=== PATIENT | male | born 1960 | race Caucasian/White ===

== ENCOUNTER 2021-01-20 11:54 | Emergency (ER) | payer OTHER ==
[~2021-01-20] VITALS: Ht 167.6 cm; Wt 120.0 kg
[2021-01-20 12:32] LABS: BASOPHILS % 0.7 % (0.0-2.0); EOSINOPHILS % 2.4 % (0.0-5.0); HEMATOCRIT. 37.4 % (42.0-52.0); HEMOGLOBIN. 12.6 g/dL (14.0-18.0); LYMPHOCYTES % 9.8 % (20.0-50.0); MEAN CORPUSCULAR HEMOGLOBIN 31.6 pg (28.0-32.0); MEAN CORPUSCULAR VOLUME 93.8 fL (80.0-94.0); MONOCYTES % 10.8 % (2.0-8.0); NEUTROPHILS % 76.3 % (40.0-76.0); PLATELET 234 x1000/uL (130-400); RED BLOOD CELL COUNT 3.99 mill/uL (4.7-6.1); RED CELL DISTRIBUTION WIDTH 12.5 % (11.6-14.6)
[2021-01-20 12:37] LABS: CHLORIDE 101 mEq/L (98-107)
[2021-01-20 16:31] VITALS: BP 160/80
== END 2021-01-20 17:49 | disposition home or self-care (01) ==
LOC: ER 11:54
DX: M25.561 Pain in right knee (principal); E11.65 Type 2 diabetes mellitus with hyperglycemia; I10 Essential (primary) hypertension
CPT/HCPCS: 36415; 73562; 80053; 85025; 93971; 99285

== ENCOUNTER 2021-01-22 11:15 | Inpatient (IN) | payer OTHER ==
[~2021-01-22] VITALS: Ht 165.1 cm; Wt 121.6 kg
[2021-01-22] MEDS ORDERED: IBUPROFEN 600MG TABLET PO ONE (11:30)
[2021-01-22] MEDS ORDERED: BACITRACIN ZINC OINT UDPKT TOP ONE (11:30)
[2021-01-22] MEDS ORDERED: ACETAMINOPHEN 325MG TABLET PO ONE (11:30)
[2021-01-22] MEDS ORDERED: LIDOCAINE HCL 1% 20ML VIAL (Pyxis) INJ INFIL ONE (13:00)
[2021-01-22 13:07] LABS: BASOPHILS % 0.8 % (0.0-2.0); EOSINOPHILS % 1.1 % (0.0-5.0); HEMATOCRIT. 38.4 % (42.0-52.0); HEMOGLOBIN. 13.2 g/dL (14.0-18.0); LYMPHOCYTES % 8.5 % (20.0-50.0); MEAN CORPUSCULAR HEMOGLOBIN 31.8 pg (28.0-32.0); MEAN CORPUSCULAR VOLUME 92.6 fL (80.0-94.0); MEAN PLATELET VOLUME 8.7 fl (7.4-10.4); MONOCYTES % 10.2 % (2.0-8.0); NEUTROPHILS % 79.4 % (40.0-76.0); PLATELET 268 x1000/uL (130-400); RED BLOOD CELL COUNT 4.15 mill/uL (4.7-6.1); RED CELL DISTRIBUTION WIDTH 12.4 % (11.6-14.6)
[2021-01-22 13:14] LABS: CHLORIDE 99 mEq/L (98-107)
[2021-01-22] MEDS ORDERED: VANCOMYCIN 1 G PREMIX 200 ML IV STA (15:49)
[2021-01-22] MEDS ORDERED: CEFTRIAXONE 1 G PREMIX 50 ML IV ONE (16:00)
[2021-01-22] MEDS ORDERED: KETOROLAC 30MG/ML VIAL IV ONE (16:30)
[2021-01-22] MEDS ORDERED: DIPHENHYDRAMINE 50MG/ML VIAL IV PRN (19:15)
[2021-01-22] MEDS ORDERED: ONDANSETRON HCL 4MG/2ML INJ IV PRN (19:15)
[2021-01-22] MEDS ORDERED: ACETAMINOPHEN 325MG TABLET PO PRN ×2 (19:15)
[2021-01-22] MEDS ORDERED: MAGNESIUM/ALUMINUM HYDROXIDE/SIMETHICONE 30ML UDC PO PRN (19:15)
[2021-01-22] MEDS ORDERED: ZOLPIDEM TARTRATE 5MG TABLET PO PRN (19:15)
[2021-01-22] MEDS ORDERED: CLONIDINE 0.1MG TABLET PO PRN (19:15)
[2021-01-22] MEDS ORDERED: NALOXONE HCL 0.4MG/ML VIAL IV PRN (19:45)
[2021-01-22 20:00] VITALS: BP 108/58
[2021-01-22] MEDS ORDERED: DEXTROSE 50% WATER 50ML SYRINGE IV PRN (21:00)
[2021-01-22] MEDS: BLOOD SUGAR DIAGNOSTIC STRIP TEST SCH (21:00)
[2021-01-22] MEDS: INSULIN GLARGINE UD 100 UNITS/ML SYR SUBCUT SCH (22:07)
[2021-01-22] MEDS: INSULIN LISPRO 100 UNITS/ML SUBCUT SCH (22:16)
[2021-01-22] MEDS: VANCOMYCIN 1 G PREMIX 200 ML IV SCH (22:19)
[2021-01-22] MEDS: SODIUM CHLORIDE 0.9% INJ 3ML FLUSH IVF SCH (22:20)
[2021-01-23] VITALS: BP 135/64
[2021-01-23] MEDS: KETOROLAC 30MG/ML VIAL IV PRN (03:40)
[2021-01-23 04:00] VITALS: BP 134/68
[2021-01-23] MEDS: BLOOD SUGAR DIAGNOSTIC STRIP TEST SCH ×4 (06:42→21:00)
[2021-01-23] MEDS: SODIUM CHLORIDE 0.9% INJ 3ML FLUSH IVF SCH ×3 (06:42→23:10)
[2021-01-23] MEDS: VANCOMYCIN 1 G PREMIX 200 ML IV SCH ×3 (06:42→23:10)
[2021-01-23] MEDS: INSULIN LISPRO 100 UNITS/ML SUBCUT SCH ×3 (06:59→21:00)
[2021-01-23 07:24] LABS: BASOPHILS % 0.8 % (0.0-2.0); EOSINOPHILS % 3.5 % (0.0-5.0); HEMATOCRIT. 34.4 % (42.0-52.0); HEMOGLOBIN. 11.8 g/dL (14.0-18.0); LYMPHOCYTES % 13.7 % (20.0-50.0); MEAN CORPUSCULAR HEMOGLOBIN 31.7 pg (28.0-32.0); MEAN CORPUSCULAR VOLUME 92.4 fL (80.0-94.0); MEAN PLATELET VOLUME 8.7 fl (7.4-10.4); MONOCYTES % 12.7 % (2.0-8.0); NEUTROPHILS % 69.3 % (40.0-76.0); PLATELET 264 x1000/uL (130-400); RED BLOOD CELL COUNT 3.72 mill/uL (4.7-6.1); RED CELL DISTRIBUTION WIDTH 12.5 % (11.6-14.6)
[2021-01-23 07:31] LABS: CHLORIDE 102 mEq/L (98-107)
[2021-01-23 08:00] VITALS: BP 138/71
[2021-01-23] MEDS: OMEPRAZOLE 20MG CAPSULE EXTENDED RELEASE PO SCH (09:57)
[2021-01-23] MEDS: LISINOPRIL 20MG TABLET PO SCH (09:57)
[2021-01-23] MEDS: GLIPIZIDE 10MG TABLET PO SCH (09:57)
[2021-01-23] MEDS: METFORMIN HCL 500MG TABLET PO SCH ×2 (10:01→18:44)
[2021-01-23] MEDS ORDERED: SODIUM BICARBONATE 4% (2.4MEQ) 5ML VIAL IV ONE (12:04)
[2021-01-23] MEDS ORDERED: LIDOCAINE HCL 1% 10 MG/ML 10ML VIAL ONE (12:04)
[2021-01-23] MEDS: HYDROCODONE/ACETAMINOPHEN 10/325MG TABLET PO PRN ×2 (14:11→23:10)
[2021-01-23 16:00] VITALS: BP 111/58
[2021-01-23] MEDS: CEFEPIME 2,000 MG in DEXT 5% WATER 100 ML IV SCH (18:24)
[2021-01-23 20:00] VITALS: BP 117/66
[2021-01-23] MEDS: INSULIN GLARGINE UD 100 UNITS/ML SYR SUBCUT SCH (22:00)
[2021-01-24] VITALS: BP 139/71
[2021-01-24 04:00] VITALS: BP 136/69
[2021-01-24] MEDS: CEFEPIME 2,000 MG in DEXT 5% WATER 100 ML IV SCH ×2 (05:12→17:49)
[2021-01-24 05:46] LABS: CHLORIDE 102 mEq/L (98-107)
[2021-01-24] MEDS: VANCOMYCIN 1 G PREMIX 200 ML IV SCH ×3 (06:06→21:38)
[2021-01-24] MEDS: SODIUM CHLORIDE 0.9% INJ 3ML FLUSH IVF SCH ×3 (06:06→22:00)
[2021-01-24] MEDS: BLOOD SUGAR DIAGNOSTIC STRIP TEST SCH ×4 (06:24→21:39)
[2021-01-24] MEDS: INSULIN LISPRO 100 UNITS/ML SUBCUT SCH ×4 (07:50→21:37)
[2021-01-24] MEDS: METFORMIN HCL 500MG TABLET PO SCH ×2 (07:50→17:47)
[2021-01-24 08:00] VITALS: BP 142/68
[2021-01-24] MEDS: OMEPRAZOLE 20MG CAPSULE EXTENDED RELEASE PO SCH (09:00)
[2021-01-24] MEDS: LISINOPRIL 20MG TABLET PO SCH (09:00)
[2021-01-24] MEDS: GLIPIZIDE 10MG TABLET PO SCH (09:00)
[2021-01-24 10:37] LABS: CLARITY URINE CLEAR (CLEAR); COLOR URINE DARK YELLOW (YELLOW); KETONES URINE NEGATIVE (NEGATIVE); LEUKOCYTE ESTERASE URINE NEGATIVE (NEGATIVE); NITRITE URINE NEGATIVE (NEGATIVE); OCCULT BLOOD URINE NEGATIVE (NEGATIVE); PH URINE 5.5 (4.5-8.0); PROTEIN URINE NEGATIVE (NEGATIVE); SPECIFIC GRAVITY URINE 1.026 (1.005-1.030)
[2021-01-24] MEDS ORDERED: GENTAMICIN SULF 40MG/ML 2ML VIAL ONE ×2 (11:32→11:51)
[2021-01-24] MEDS ORDERED: SODIUM CHLORIDE 0.9% INJ 10ML FLUSH IVF ONE (11:33)
[2021-01-24] MEDS ORDERED: EPINEPHRINE 1:1000 1 MG/ML AMP ONE (11:33)
[2021-01-24] MEDS ORDERED: POLYMYXIN B SULFATE 500000 UNITS/VIAL ONE ×2 (11:33→11:51)
[2021-01-24 12:00] VITALS: BP 135/60
[2021-01-24] MEDS ORDERED: LIDOCAINE HCL/EPINEPHRINE 1%-EPI 1:100,000 20 ML VIAL ONE (12:14)
[2021-01-24] MEDS ORDERED: VANCOMYCIN HCL 1 GM/VIAL ONE (13:05)
[2021-01-24] MEDS ORDERED: HYDROMORPHONE HCL/PF 2MG/ML (OR) ONE ×2 (13:33→13:47)
[2021-01-24] MEDS ORDERED: DEXAMETHASONE 4MG/ML 1ML VIAL ONE (13:34)
[2021-01-24] MEDS ORDERED: GLYCOPYRROLATE 0.2 MG/ML 2ML VIAL ONE ×2 (13:41→13:47)
[2021-01-24] MEDS ORDERED: ONDANSETRON HCL 4MG/2ML INJ IV PRN (14:30)
[2021-01-24] MEDS ORDERED: LABETALOL 5MG/ML SYR 20 MG/4 ML SYRINGE IV PRN (14:30)
[2021-01-24] MEDS ORDERED: MEPERIDINE HCL/PF 25MG/ML CPJ IV PRN (14:30)
[2021-01-24] MEDS ORDERED: HYDROMORPHONE HCL/PF 2MG/ML CPJ IV PRN (14:30)
[2021-01-24 20:00] VITALS: BP 123/69
[2021-01-24] MEDS: INSULIN GLARGINE UD 100 UNITS/ML SYR SUBCUT SCH (21:37)
[2021-01-25] VITALS: BP 130/70
[2021-01-25] MEDS: HYDROCODONE/ACETAMINOPHEN 10/325MG TABLET PO PRN ×2 (02:21→20:59)
[2021-01-25 04:00] VITALS: BP 129/69
[2021-01-25] MEDS: CEFEPIME 2,000 MG in DEXT 5% WATER 100 ML IV SCH (06:07)
[2021-01-25] MEDS: VANCOMYCIN 1 G PREMIX 200 ML IV SCH ×2 (06:42→13:04)
[2021-01-25] MEDS: SODIUM CHLORIDE 0.9% INJ 3ML FLUSH IVF SCH ×3 (06:43→21:30)
[2021-01-25] MEDS: INSULIN LISPRO 100 UNITS/ML SUBCUT SCH ×4 (06:59→21:03)
[2021-01-25] MEDS: BLOOD SUGAR DIAGNOSTIC STRIP TEST SCH ×4 (07:54→20:59)
[2021-01-25 08:00] VITALS: BP 133/62
[2021-01-25] MEDS: GLIPIZIDE 10MG TABLET PO SCH (08:54)
[2021-01-25] MEDS: LISINOPRIL 20MG TABLET PO SCH (08:55)
[2021-01-25] MEDS: OMEPRAZOLE 20MG CAPSULE EXTENDED RELEASE PO SCH (08:55)
[2021-01-25] MEDS: METFORMIN HCL 500MG TABLET PO SCH ×2 (08:55→18:24)
[2021-01-25 12:00] VITALS: BP 120/57
[2021-01-25] MEDS: INSULIN GLARGINE UD 100 UNITS/ML SYR SUBCUT SCH ×2 (12:33→21:29)
[2021-01-25] MEDS: CEFTRIAXONE 2 G in DEXTROSE 5% WATER 50 ML IV SCH (15:24)
[2021-01-25 16:00] VITALS: BP 136/59
[2021-01-25 20:00] VITALS: BP 111/57
[2021-01-26 00:39] VITALS: BP 111/54
[2021-01-26 04:00] VITALS: BP 118/58
[2021-01-26] MEDS: HYDROCODONE/ACETAMINOPHEN 10/325MG TABLET PO PRN ×2 (06:42→17:17)
[2021-01-26] MEDS: SODIUM CHLORIDE 0.9% INJ 3ML FLUSH IVF SCH (06:43)
[2021-01-26 08:00] VITALS: BP 132/68
[2021-01-26] MEDS: LISINOPRIL 20MG TABLET PO SCH (08:55)
[2021-01-26] MEDS: METFORMIN HCL 500MG TABLET PO SCH ×2 (08:55→18:17)
[2021-01-26] MEDS: OMEPRAZOLE 20MG CAPSULE EXTENDED RELEASE PO SCH (08:56)
[2021-01-26] MEDS: GLIPIZIDE 10MG TABLET PO SCH (09:02)
[2021-01-26 12:00] VITALS: BP 118/54
[2021-01-26] MEDS: INSULIN GLARGINE UD 100 UNITS/ML SYR SUBCUT SCH (12:31)
[2021-01-26] MEDS: KETOROLAC 30MG/ML VIAL IV PRN (13:31)
[2021-01-26 16:00] VITALS: BP 130/65
[2021-01-26] MEDS: CEFTRIAXONE 2 G in DEXTROSE 5% WATER 50 ML IV SCH (16:44)
[2021-01-26 18:24] VITALS: BP 125/77
[2021-01-26] MEDS ORDERED: LEVO500T89 MT (18:44)
[2021-01-26] MEDS ORDERED: HYDR-4001 MT (18:45)
[2021-01-27] MEDS ORDERED: FAMOTIDINE 20MG TABLET PO SCH (09:00)
== END 2021-01-26 19:04 | disposition home or self-care (01) | DRG 853 ==
LOC: ER 11:15 → 6EST 16:08 → EDBEDREQ 16:24 → EDBEDREQTM 16:24 → EDBEDREQSVC 16:24 → ENRESERV 16:34
PROVIDERS: ADMIT Internal Medicine; ATTEND Internal Medicine
PROC: 0S9C3ZZ Drainage of Right Knee Joint, Percutaneous Approach (ICD-10-PCS; principal; 2021-01-22)
PROC: 0S9C3ZZ Drainage of Right Knee Joint, Percutaneous Approach (ICD-10-PCS; 2021-01-23)
PROC: 0SBC0ZZ Excision of Right Knee Joint, Open Approach (ICD-10-PCS; 2021-01-24)
DX: A41.9 Sepsis, unspecified organism (principal); E43 Unspecified severe protein-calorie malnutrition; M00.9 Pyogenic arthritis, unspecified; Z68.41 Body mass index [BMI] 40.0-44.9, adult; M17.11 Unilateral primary osteoarthritis, right knee; E11.9 Type 2 diabetes mellitus without complications; I10 Essential (primary) hypertension; E66.9 Obesity, unspecified; B96.89 Other specified bacterial agents as the cause of diseases classified elsewhere; R30.0 Dysuria; Z20.822 Contact with and (suspected) exposure to COVID-19; M11.261 Other chondrocalcinosis, right knee; S81.011A Laceration without foreign body, right knee, initial encounter; X58.XXXA Exposure to other specified factors, initial encounter; Y93.89 Activity, other specified; Y92.89 Other specified places as the place of occurrence of the external cause; Y99.8 Other external cause status
CPT/HCPCS: 20611; 36415; 73562; 80048; 80053; 80202; 81003; 82962; 84550; 85025; 85651; 86140; 87070; 87075; 87077; 87102; 87186; 87426; 89060; 93005; 93306; 97161; 99285; J0692; J0696; J1100; J1170; J1580; J1815; J1885; J3370; J3490; J7040; J7060